=== PATIENT | female | born 1960 | race Caucasian/White ===

== ENCOUNTER 2018-01-14 09:15 | Emergency (ER) | payer OTHER ==
[~2018-01-14] VITALS: Ht 157.5 cm; Wt 72.7 kg
[~2018-01-14 09:15] MED LIST: ESTR8.1S TOP; HYDR-3965 PO; NOR5T PO
[2018-01-14] MEDS ORDERED: ondansetron/PF 4mg/2ml inj IV ONE (09:30)
[2018-01-14] MEDS ORDERED: meclizine 12.5mg tablet PO ONE (09:30)
[2018-01-14] MEDS ORDERED: FLUO10CA28 PO (09:42)
[2018-01-14 09:47] LABS: BASOPHILS % (AUTO) 0.2 % (0-1); EOSINOPHILS # (AUTO) 0.3 X10'3 (0-0.9); EOSINOPHILS % (AUTO) 3.3 % (0-6); HEMATOCRIT 40.5 % (35.0-45.0); HEMOGLOBIN 13.9 g/dl (12.0-16.0); LYMPHOCYTES # (AUTO) 2.2 X10'3 (1.1-4.8); LYMPHOCYTES % (AUTO) 28.6 % (21-51); MEAN CORPUSCULAR HEMOGLOBIN 30.6 PG (27.0-31.0); MEAN CORPUSCULAR HGB CONC 34.4 % (33.0-36.5); MEAN CORPUSCULAR VOLUME 88.9 FL (78-98); MEAN PLATELET VOLUME 7.3 FL (7.4-10.4); MONOCYTES # (AUTO) 0.3 X10'3 (0-0.9); MONOCYTES % (AUTO) 4.2 % (2-12); NEUTROPHILS % (AUTO) 63.7 % (42-75); PLATELET COUNT 260 X10'3 (140-440); RED BLOOD COUNT 4.55 X10'6 (4.20-5.60); RED CELL DISTRIBUTION WIDTH 13.3 % (11.5-14.5); WHITE BLOOD COUNT 7.8 X10'3 (4.5-11.0)
[2018-01-14 10:00] LABS: ALANINE AMINOTRANSFERASE 21 U/L (12-78); ALBUMIN 3.5 G/DL (3.4-5.0); ALKALINE PHOSPHATASE 116 IU/L (46-116); ANION GAP 8 (8-16); ASPARTATE AMINO TRANSFERASE 21 U/L (10-37); BILIRUBIN,TOTAL 0.5 MG/DL (0.1-1.0); BLOOD UREA NITROGEN 21 MG/DL (7-18); BUN/CREATININE RATIO 18.3 (6.6-38.0); CALCIUM 8.3 MG/DL (8.5-10.1); CHLORIDE 106 MMOL/L (99-107); CREATININE 1.15 MG/DL (0.40-0.90); GLUCOSE 123 MG/DL (70-104); MAGNESIUM 2.1 MG/DL (1.5-2.4); POTASSIUM 3.8 MMOL/L (3.5-5.1); SODIUM 140 MMOL/L (135-145); TOTAL CARBON DIOXIDE 26.5 MMOL/L (24-32); TOTAL PROTEIN 7.1 G/DL (6.4-8.2); eGFR 48 ML/MIN
[2018-01-14] MEDS ORDERED: MECL-111 PO (11:01)
[2018-01-14 11:09] VITALS: BP 153/92
== END 2018-01-14 11:10 | disposition home or self-care (01) ==
LOC: ER 09:15
DX: R42 Dizziness and giddiness (principal); R11.0 Nausea; G43.909 Migraine, unspecified, not intractable, without status migrainosus; I10 Essential (primary) hypertension; H53.149 Visual discomfort, unspecified; Z79.899 Other long term (current) drug therapy
CPT/HCPCS: 36415; 80053; 83735; 84484; 85025; 93005; 99285; J8597; J2405